=== PATIENT | female | born 1960 | race Caucasian/White ===

== ENCOUNTER → 2016-11-01 | Outpatient (CLI) | payer MEDICARE, OTHER, MEDICAID ==
[~2016-11-01] MED LIST: CYCL10TA9; DOXY100C2 PO; EST.625T; HYDR-3714 PO; LORA1TAB; METR500T PO; MTX2.5T; NFPRILOC40; OXYC-272; OXYC10TA7; PREG50C; ROSU10TA12; SSD50T TOP; SULF1TAB35 PO; [UNRECOGNIZED DRUG - OTHER]
--- OUTSIDE RECORDS SUMMARY | 2016-11-01 10:10 | XMS REPORT | Continuity of Care Document ---
Author Author [facility] Organization [facility] Address Unknown Phone Unavailable Allergies Active Description Code Type Severity Reaction Onset Reported/Identified Relationship to Patient Clinical Status Yes bupropion [id number] Drug Allergy Unknown N/A 07/30/2006 Yes infliximab [id number] Drug Allergy Unknown N/A 07/30/2006 Yes zolpidem [id number] Drug Allergy Unknown N/A 07/30/2006 Yes ZIBAN ZIBAN Mild N/A 01/24/2009 Medications Problems Date Dx Coded Attending Type Code Diagnosis Diagnosed By 02/04/2010 Ot 944.16 02/04/2010 Ot 944.17 02/04/2010 Ot 944.21 02/04/2010 Ot 944.25 02/04/2010 Ot 945.22 02/04/2010 Ot 948.00 02/04/2010 Ot E000.8 02/04/2010 Ot E015.2 02/04/2010 Ot E825.8 02/04/2010 Ot V06.1 12/18/2010 Ot 458.9 12/18/2010 Ot 780.2 07/14/2015 RYLIE PRICE DO Ot Z98.89 07/27/2015 RYLIE PRICE DO Ot Z98.89 Procedures Results Encounters ACCT No. Visit Date/Time Discharge Status Pt. Type Provider Facility Loc./Unit Complaint [id number] 07/12/2015 15:31:00 2014 16:59:00 DIS Outpatient RYLIE PRICE DO [facility] [id number] 12/18/2010 21:59:00 Document Registration [id number] 02/04/2010 10:11:00 Document Registration
--- NOTE | 2016-11-01 19:24 | Diagnostic Imaging Report ---
INDICATION: Digital mammogram bilateral screening. This study was compared to the prior exam of 06/16/06. At this time, there are no current complaints. The current study was also evaluated with a Computer Aided Detection (CAD) system. FINDINGS: The fibroglandular tissue in both breasts is heterogeneously dense. This does limit the sensitivity of this exam. Overall, there does not appear to have been any significant change when compared to the prior study. No primary or secondary sign of malignancy is noted. IMPRESSION: 1. There is no evidence of malignancy. 2. The patient should have her annual bilateral screening mammogram on schedule in October of 2017. ACR BI-RADS Category 1: Negative. Result letter will be mailed to the patient. Note: At least 10% of breast cancer is not imaged by mammography. Dictated by: Dictated on workstation # [id number]
== END ==
LOC: RAD 10:07
PROVIDERS: ATTEND Family Medicine
DX: Z12.31 Encounter for screening mammogram for malignant neoplasm of breast (principal)
CPT/HCPCS: 77067

== ENCOUNTER → 2021-10-24 | Outpatient (CLI) | payer MEDICAID, MEDICARE, OTHER ==
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
== END ==
LOC: RAD 08:00
PROVIDERS: ATTEND Nurse Practitioner Family
DX: S82.141A Displaced bicondylar fracture of right tibia, initial encounter for closed fracture (principal); S83.511A Sprain of anterior cruciate ligament of right knee, initial encounter; S99.911A Unspecified injury of right ankle, initial encounter; V89.2XXA Person injured in unspecified motor-vehicle accident, traffic, initial encounter
CPT/HCPCS: 73721